=== PATIENT | female | born 1965 | race Caucasian/White ===

== ENCOUNTER → 2020-09-22 09:52 | Outpatient (BNVA) | payer MEDICARE, SELFPAY | PROVIDERS: PCP Obstetrics & Gynecology; Visit Provider Anesthesiology | DX: M96.1 Postlaminectomy syndrome, not elsewhere classified (principal); M17.11 Unilateral primary osteoarthritis, right knee; Z79.891 Long term (current) use of opiate analgesic | CPT/HCPCS: 99202 ==